=== PATIENT | male | born 1985 | race Caucasian/White ===

== ENCOUNTER 2017-03-08 11:54 | Emergency (ER) | payer OTHER, SELFPAY ==
[2017-03-08] MEDS ORDERED: Morphine Sulfate 2 MG/ML SYRINGE ONE (12:11)
[2017-03-08] MEDS ORDERED: Ondansetron HCl/PF 4 MG/2 ML Vial ONE (12:12)
[2017-03-08] MEDS ORDERED: Adacel (T-DAP) 0.5 ML VIAL ONE (12:12)
[2017-03-08] MEDS ORDERED: Ketorolac Tromethamine 30 MG/ML VIAL ONE (12:12)
[2017-03-08] MEDS ORDERED: cefTRIAXone\\ROCEPHIN 1 GM VIAL ONE (12:12)
[2017-03-08] MEDS ORDERED: Sodium Chloride 0.9% 100 ML BAG ONE (12:35)
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
[2017-03-08] MEDS ORDERED: HYDROcodone/Acetaminophen 10/325 mg Tablet ONE (14:41)
== END 2017-03-08 15:00 | disposition home or self-care (01) ==
LOC: MADERS 11:54
DX: S06.0X9A Concussion with loss of consciousness of unspecified duration, initial encounter (principal); S02.2XXA Fracture of nasal bones, initial encounter for closed fracture; S02.40FA Zygomatic fracture, left side, initial encounter for closed fracture; S02.40DA Maxillary fracture, left side, initial encounter for closed fracture; S01.412A Laceration without foreign body of left cheek and temporomandibular area, initial encounter; W01.198A Fall on same level from slipping, tripping and stumbling with subsequent striking against other object, initial encounter; Y92.69 Other specified industrial and construction area as the place of occurrence of the external cause
CPT/HCPCS: 70450; 70486; 72125; 90471; 90715; 96365; 96375; 96376; A4216; J0696; J1885; J2270; J2405; J7050